=== PATIENT | female | born 2000 | race African-American/Black ===

== ENCOUNTER 2022-01-04 12:23 | Observation (INO) ==
[2022-01-04] MEDS ORDERED: VANCOMYCIN INJ 1,500 MG in SODIUM CHLORIDE 0.9% 250 ML IV STA (14:03)
[2022-01-04] MEDS ORDERED: VANCOMYCIN INJ 1,500 MG in SODIUM CHLORIDE 0.9% 500 ML IV STA (14:09)
[2022-01-04] MEDS ORDERED: DIPH/TET/ACEL PERT BOOSTER VACCINE 0.5 ML VIAL IM ONE (14:19)
[2022-01-04 14:27] LABS: Basophils % 0.3 % (0.0-0.8); Eosinophils # 0.1 10*3/uL (0.0-0.87); Eosinophils % 0.7 % (0.00-10.9); Hematocrit 39.2 VOL% (35.7-47.0); Immature Granulocytes % 0.5 %; Immature Granulocytes Absolute 0.04 #; Lymphocytes % 23.5 % (21.3-54.2); Mean Corpuscular HGB Conc 33.2 GM/DL (32-36); Mean Corpuscular Volume 87.7 FL (87-102); Mean Platelet Volume 10.4 FL (9.6-12.0); Platelet Count 336 T/CUMM (130-400); Red Blood Count 4.47 MC/CUMM (3.8-5.5); Red Cell Distribution Width 12.2 % (9.3-17.3); White Blood Count 8.6 T/CUMM (4-12)
[2022-01-04] MEDS ORDERED: KETOROLAC 10 MG TABLET PO PRN (14:32)
[2022-01-04] MEDS ORDERED: ONDANSETRON 4 MG/2 ML VIAL IV PRN (14:32)
[2022-01-04] MEDS ORDERED: ACETAMINOPHEN 325 MG TABLET PO PRN (14:32)
[2022-01-04 14:36] LABS: Calcium 9.4 MG/DL (8.5-10.1); Osmolality,Calculated 279.2 MOS/KG (273-304); Potassium 4.5 MMOL/L (3.5-5.1)
[2022-01-04] MEDS ORDERED: VANCOMYCIN INJ 1,500 MG in SODIUM CHLORIDE 0.9% 500 ML IV SCH (15:00)
[2022-01-04] MEDS ORDERED: DEXTROSE 5% NACL 0.45% 1,000 ML IV SCH (15:00)
[2022-01-04] MEDS ORDERED: NICOTINE 14 MG/24 HR PATCH TRANSDERM PRN (15:12)
[2022-01-04] MEDS ORDERED: GLUCAGON 1 MG VIAL IM PRN ×2 (15:14→16:16)
[2022-01-04] MEDS ORDERED: DEXTROSE 10% 25 GM/250 ML BAG IV PRN (15:14)
[2022-01-04] MEDS ORDERED: DEXTROSE 50% 25 GM/50 ML VIAL IV PRN (16:16)
[2022-01-04] MEDS ORDERED: INSULIN LISPRO 100 UNIT/ML SUBCUT SCH (16:30)
[2022-01-04] MEDS: INSULIN LISPRO 100 UNIT/ML SUBCUT SCH ×2 (16:46→21:33)
[2022-01-04] MEDS: SODIUM CHLORIDE 0.9% 1,000 ML IV SCH (16:47)
[2022-01-04] MEDS ORDERED: INSULIN GLARGINE 100 UNIT/ML SUBCUT SCH (21:00)
[2022-01-05] MEDS: SODIUM CHLORIDE 0.9% 1,000 ML IV SCH (00:42)
[2022-01-05] MEDS: VANCOMYCIN INJ 1,750 MG in SODIUM CHLORIDE 0.9% 500 ML IV SCH ×2 (03:22→14:48)
[2022-01-05 05:26] LABS: Basophils % 0.1 % (0.0-0.8); Eosinophils # 0.1 10*3/uL (0.0-0.87); Hematocrit 33.9 VOL% (35.7-47.0); Hemoglobin 10.8 GM/DL (12.0-16.0); Immature Granulocytes % 0.5 %; Immature Granulocytes Absolute 0.04 #; Lymphocytes # 2.5 10*3/uL (1.4-4.0); Lymphocytes % 28.2 % (21.3-54.2); Mean Corpuscular HGB Conc 31.9 GM/DL (32-36); Mean Corpuscular Volume 89.2 FL (87-102); Mean Platelet Volume 10.3 FL (9.6-12.0); Monocytes % 5.6 % (1.7-12.7); Neutrophils % 64.6 % (38.7-73.9); Platelet Count 290 T/CUMM (130-400); White Blood Count 8.8 T/CUMM (4-12)
[2022-01-05 05:49] LABS: Risk Ratio 3.77; VLDL Cholesterol 17.2 MG/DL
[2022-01-05 05:50] LABS: Calcium 8.7 MG/DL (8.5-10.1); Osmolality,Calculated 285.8 MOS/KG (273-304); Potassium 4.1 MMOL/L (3.5-5.1)
[2022-01-05] MEDS ORDERED: CLINDAMYCIN INJ 900 MG/50 ML PREMIX IV ONE (06:30)
[2022-01-05] MEDS ORDERED: MAGNESIUM SULF RIDER 4 GM/100 ML PREMIX IV PRN (07:53)
[2022-01-05] MEDS ORDERED: MAGNESIUM SULF RIDER 2 GM/50 ML PREMIX IV PRN (07:53)
[2022-01-05] MEDS ORDERED: LACTATED RINGERS 1,000 ML IV SCH (08:00)
[2022-01-05] MEDS ORDERED: LIDOCAINE 2% 5 ML VIAL ONE (08:43)
[2022-01-05] MEDS ORDERED: propofoL 200 MG/20 ML VIAL IV ONE (08:43)
[2022-01-05] MEDS ORDERED: MIDAZOLAM 2 MG/2 ML VIAL ONE (08:43)
[2022-01-05] MEDS ORDERED: fentaNYL 100 MCG/2 ML VIAL ONE (08:43)
[2022-01-05] MEDS ORDERED: LIDOCAINE 1% 50 ML VIAL ONE (08:45)
[2022-01-05] MEDS ORDERED: LIDOCAINE 1%/EPI INJ 20 ML VIAL ONE (08:45)
[2022-01-05] MEDS ORDERED: BUPIVACAINE MPF 0.25% 30 ML VIAL ONE (08:45)
[2022-01-05] MEDS ORDERED: PANTOPRAZOLE 40 MG TABLET PO SCH (09:00)
[2022-01-05] MEDS ORDERED: PIPERACILLIN/TAZOBACTAM 3,375 MG in SODIUM CHLORIDE 0.9% 100 ML IV SCH (09:00)
[2022-01-05] MEDS ORDERED: SEVOFLURANE 1 UNIT/15 MINUTE INH ONE (09:31)
[2022-01-05] MEDS ORDERED: DEXAMETHASONE 4 MG/1 ML VIAL ONE (09:31)
[2022-01-05] MEDS ORDERED: ONDANSETRON 4 MG/2 ML VIAL ONE (09:31)
[2022-01-05] MEDS ORDERED: HYDROmorphone 1 MG/1 ML SYRINGE ONE (09:59)
[2022-01-05] MEDS: HYDROmorphone 1 MG/1 ML SYRINGE IV PRN ×2 (10:00→10:12)
[2022-01-05] MEDS ORDERED: ONDANSETRON 4 MG/2 ML VIAL IV PRN (10:05)
[2022-01-05] MEDS: INSULIN LISPRO 100 UNIT/ML SUBCUT SCH ×3 (12:13→17:41)
[2022-01-05 12:57] VITALS: BP 135/81
[2022-01-05] MEDS ORDERED: INSULIN LISPRO 100 UNIT/ML SUBCUT ONE (14:31)
== END 2022-01-05 18:20 | disposition home or self-care (01) ==
LOC: N.ED 12:23 → N.EDINP 12:23 → N.3E 15:52 → UNDODISOB 01-05 18:20
PROVIDERS: ADMIT Surgery; ATTEND Surgery